=== PATIENT | female | born 1995 | race Caucasian/White ===

== ENCOUNTER 2018-05-31 14:47 | Emergency (ER) | payer SELFPAY ==
[~2018-05-31] VITALS: Ht 157.5 cm; Wt 64.9 kg
[~2018-05-31 14:47] MED LIST: ABILIFY; OMEPRAZOLE; TRAMADOL; XANAX; Z.0.CELEXA40 MG
--- OUTSIDE RECORDS SUMMARY | 2018-05-31 14:49 | XMS REPORT | Clinical Summary ---
Author Author [facility] [employer] [facility] Address Unknown Phone Unavailable Care Team Providers Care Rhinestone Setter Name Role Phone Asked, No Pcp PCP Unavailable Allergies Comments Active Allergy Reactions Severity Noted Date Yeast infections Amoxicillin Other (See 10/31/2016 Comments) Medications End Date Status Medication Sig Dispensed Refills Start Date Active Take 1 tablet 0 vit,[id number] 29 by mouth mg iron- 1 mg tablet per daily. tablet 02/11/2018 dicyclomine (BENTYL) 20 Take 1 tablet 20 tablet 0 02/01/201 mg tablet (20 mg total) 8 by mouth 2 (two) times a day for 10 days. 03/03/2018 ranitidine (ZANTAC) 150 Take 1 30 capsule 0 201 MG capsule capsule (150 8 mg total) by mouth daily for 30 days. 02/06/2018 acetaminophen-codeine Take 1-2 15 tablet 0 (TYLENOL WITH CODEINE #3) tablets by 8 300-30 mg per tablet mouth every 6 (six) hours as needed for moderate pain for up to 5 days. 03/03/2018 ondansetron (ZOFRAN) 8 MG Take 1 tablet 20 tablet 0 201 tablet (8 mg total) 8 by mouth every 8 (eight) hours as needed for nausea or vomiting for up to 30 days. Active Problems Not on file Encounters Care Team Description Date Type Specialty Yared, Dax Arizmendi Jr., MD Lower abdominal pain (Primary Dx); Nausea 01/31/2018 Emergency Emergency Medicine - 02/01/2018 after 05/30/2017 Social History Date Tobacco Use Types Packs/Day Years Used Quit: 10/31/2014 Former Smoker Cigarettes 0.5 Alcohol Use Drinks/Week oz/Week Comments No Sex Assigned at Date Recorded Not on file Industry Job Start Date Occupation Not on file Not on file Not on file Travel End Travel History Travel Start No recent travel history available. Last Filed Vital Signs Time Taken Vital Sign Reading 02/01/2018 4:43 AM CDT Blood Pressure 127/78 02/01/2018 4:43 AM CDT Pulse 56 02/01/2018 4:43 AM CDT Temperature 36.8 C (98.3 F) 02/01/2018 4:43 AM CDT Respiratory Rate 17 02/01/2018 4:43 AM CDT Oxygen Saturation 100% - Inhaled Oxygen - Concentration 01/31/2018 11:11 PM CDT Weight 68 kg (150 lb) 01/31/2018 11:11 PM CDT Height 157.5 cm (5' 2") 01/31/2018 11:11 PM CDT Body Mass Index 27.44 Plan of Treatment Health Maintenance Due Date Last Done Comments CERVICAL CANCER SCREENING 2014 CHLAMYDIA SCREENING 11/04/2017 11/04/2016 INFLUENZA VACCINE 12/28/2017 Procedures Comments Procedure Name Priority Date/Time Associated Diagnosis US PELVIC TRANSVAGINAL STAT 02/01/2018 5:49 AM CDT US PELVIC TRANSABDOMINAL STAT 02/01/2018 5:[address] ABDOMEN PELVIS W STAT 02/01/2018 CONTRAST 3:11 AM CDT HCG QUALITATIVE, URINE STAT 02/01/2018 SCREEN 12:37 AM CDT URINALYSIS SCREEN AND STAT 02/01/2018 MICROSCOPY, WITH REFLEX 12:37 AM CDT TO CULTURE ZZESTIMATED GFR STAT 01/31/2018 11:47 PM CDT LIPASE LEVEL STAT 01/31/2018 11:47 PM CDT COMPREHENSIVE METABOLIC STAT 01/31/2018 PANEL 11:47 PM CDT HC COMPLETE BLD COUNT STAT 01/31/2018 W/AUTO DIFF 11:47 PM CDT after 05/30/2017 Results * US Pelvic Transabdominal (02/01/2018 5:49 AM CDT) Narrative Performed At Examination:US PELVIC TRANSABDOMINAL, US PELVIC TRANSVAGINAL [facility] Clinical History: Adnexal massUS simple cystfollow up, Pelvic painneg HCGnon-sat act instructor Comparison: None. Findings: Transabdominal and transvaginal pelvic ultrasound was performed. The uterus measures 7.0 x 5.1 x 3.0 cm. Endometrial to measure 8.9 mm. The right ovary measured 4.3 x 2.4 x 2.7 cm. The left ovary measured 5.6 x 3.8 x 3.7 cm. It contains a cystic structure measuring 3.1 x 3.0 x 3.0 cm. It has some septation and internal echoes within it. There is normal vascular flow seen in both ovaries. Nonspecific free fluid in the pelvis is noted. IMPRESSION: 1. No evidence of torsion. 2. Left ovarian complex or hemorrhagic cyst. [facility]-[id number] Procedure Note Interface, Radiology Results Incoming - 02/01/2018 6:08 AM CDT Examination: US PELVIC TRANSABDOMINAL, US PELVIC TRANSVAGINAL Clinical History: Adnexal mass US simple cyst follow up, Pelvic pain neg HCG non-sat act instructor Comparison: None. Findings: Transabdominal and transvaginal pelvic ultrasound was performed. The uterus measures 7.0 x 5.1 x 3.0 cm. Endometrial to measure 8.9 mm. The right ovary measured 4.3 x 2.4 x 2.7 cm. The left ovary measured 5.6 x 3.8 x 3.7 cm. It contains a cystic structure measuring 3.1 x 3.0 x 3.0 cm. It has some septation and internal echoes within it. There is normal vascular flow seen in both ovaries. Nonspecific free fluid in the pelvis is noted. IMPRESSION: 1. No evidence of torsion. 2. Left ovarian complex or hemorrhagic cyst. [id number] Performing Organization Address City/State/Zipcode Phone Number [facility] [address] [place] [address] * US Pelvic Transvaginal (02/01/2018 5:49 AM CDT) Narrative Performed At Examination:US PELVIC TRANSABDOMINAL, US PELVIC TRANSVAGINAL [facility] Clinical History: Adnexal massUS simple cystfollow up, Pelvic painneg HCGnon-sat act instructor Comparison: None. Findings: Transabdominal and transvaginal pelvic ultrasound was performed. The uterus measures 7.0 x 5.1 x 3.0 cm. Endometrial to measure 8.9 mm. The right ovary measured 4.3 x 2.4 x 2.7 cm. The left ovary measured 5.6 x 3.8 x 3.7 cm. It contains a cystic structure measuring 3.1 x 3.0 x 3.0 cm. It has some septation and internal echoes within it. There is normal vascular flow seen in both ovaries. Nonspecific free fluid in the pelvis is noted. IMPRESSION: 1. No evidence of torsion. 2. Left ovarian complex or hemorrhagic cyst. [facility]-[id number] Procedure Note Interface, Radiology Results Incoming - 02/01/2018 6:08 AM CDT Examination: US PELVIC TRANSABDOMINAL, US PELVIC TRANSVAGINAL Clinical History: Adnexal mass US simple cyst follow up, Pelvic pain neg HCG non-sat act instructor Comparison: None. Findings: Transabdominal and transvaginal pelvic ultrasound was performed. The uterus measures 7.0 x 5.1 x 3.0 cm. Endometrial to measure 8.9 mm. The right ovary measured 4.3 x 2.4 x 2.7 cm. The left ovary measured 5.6 x 3.8 x 3.7 cm. It contains a cystic structure measuring 3.1 x 3.0 x 3.0 cm. It has some septation and internal echoes within it. There is normal vascular flow seen in both ovaries. Nonspecific free fluid in the pelvis is noted. IMPRESSION: 1. No evidence of torsion. 2. Left ovarian complex or hemorrhagic cyst. [id number] Performing Organization Address City/State/Zipcode Phone Number [facility] [address] [place] [address] * CT Abdomen Pelvis W Contrast (02/01/2018 3:11 AM CDT) Narrative Performed At Examination:CT ABDOMEN PELVIS W CONTRAST [facility] Clinical History: Abd paingastroenteritis or colitis suspected Comparison: None. Findings: CT scans are performed using radiation dose reduction techniques.Technical factors are evaluated and adjusted to ensure appropriate moderation of exposure.Automated dose management technology is applied to adjust radiation exposure while achieving a diagnostic quality image. CT scan of abdomen and pelvis was performed after intravenous contrast. The liver, spleen, pancreas, and adrenal glands are unremarkable. The patient is status post cholecystectomy. The kidneys are within normal limits without hydronephrosis. The appendix is visualized and unremarkable. No bowel thickening or fat stranding is seen. No bowel dilatation is seen. There is a left ovarian cyst noted measuring 3.1 cm. No free air is seen. Small free fluid is noted in the pelvis. Urinary bladder is unremarkable. The visualized lung bases are clear. IMPRESSION: 1. Left ovarian cyst. 2. Small nonspecific free fluid in the pelvis. 3. Otherwise no acute abnormality identified in abdomen or pelvis. [facility]-[id number] Procedure Note Interface, Radiology Results Incoming - 02/01/2018 3:19 AM CDT Examination: CT ABDOMEN PELVIS W CONTRAST Clinical History: Abd pain gastroenteritis or colitis suspected Comparison: None. Findings: CT scans are performed using radiation dose reduction techniques. Technical factors are evaluated and adjusted to ensure appropriate moderation of exposure. Automated dose management technology is applied to adjust radiation exposure while achieving a diagnostic quality image. CT scan of abdomen and pelvis was performed after intravenous contrast. The liver, spleen, pancreas, and adrenal glands are unremarkable. The patient is status post cholecystectomy. The kidneys are within normal limits without hydronephrosis. The appendix is visualized and unremarkable. No bowel thickening or fat stranding is seen. No bowel dilatation is seen. There is a left ovarian cyst noted measuring 3.1 cm. No free air is seen. Small free fluid is noted in the pelvis. Urinary bladder is unremarkable. The visualized lung bases are clear. IMPRESSION: 1. Left ovarian cyst. 2. Small nonspecific free fluid in the pelvis. 3. Otherwise no acute abnormality identified in abdomen or pelvis. [id number] Performing Organization Address City/State/Zipcode Phone Number [facility] [address] [place] [address] * Urinalysis screen and microscopy, with reflex to culture (02/01/2018 12:37 AM CDT) Specimen site Clean catch [facility] DEPARTMENT OF PATHOLOGY AND GENOMIC MEDICINE Color, UA Yellow [facility] DEPARTMENT OF PATHOLOGY AND GENOMIC MEDICINE Appearance, UA Clear [facility] DEPARTMENT OF PATHOLOGY AND GENOMIC MEDICINE Specific gravity, UA 1.034 1.001 - 1.035 [facility] DEPARTMENT OF PATHOLOGY AND GENOMIC MEDICINE pH, UA 5.0 5.0 - 8.5 [facility] DEPARTMENT OF PATHOLOGY AND GENOMIC MEDICINE Protein, UA 1+ (A) Negative [facility] DEPARTMENT OF PATHOLOGY AND GENOMIC MEDICINE Glucose, UA Negative Negative [facility] DEPARTMENT OF PATHOLOGY AND GENOMIC MEDICINE Ketones, UA 1+ (A) Negative [facility] DEPARTMENT OF PATHOLOGY AND GENOMIC MEDICINE Bilirubin, UA 2+ (A)Comment: Confirmation of Negative [facility] DEPARTMENT OF results no longer performed PATHOLOGY AND due to unavailability of GENOMIC MEDICINE reagent Blood, UA Negative Negative [facility] DEPARTMENT OF PATHOLOGY AND GENOMIC MEDICINE Nitrite, UA Negative Negative [facility] DEPARTMENT OF PATHOLOGY AND GENOMIC MEDICINE Urobilinogen, UA Negative <2.0 [facility] DEPARTMENT OF PATHOLOGY AND GENOMIC MEDICINE Leukocyte esterase, UA Negative Negative [facility] DEPARTMENT OF PATHOLOGY AND GENOMIC MEDICINE Epithelial cells, UA Many /HPF [facility] DEPARTMENT OF PATHOLOGY AND GENOMIC MEDICINE WBC, UA 1 0 - 5 /HPF [facility] DEPARTMENT OF PATHOLOGY AND GENOMIC MEDICINE RBC, UA 2 0 - 5 /HPF [facility] DEPARTMENT OF PATHOLOGY AND GENOMIC MEDICINE Bacteria, UA Trace None seen [facility] DEPARTMENT OF PATHOLOGY AND GENOMIC MEDICINE Yeast, UA None seen [facility] DEPARTMENT OF PATHOLOGY AND GENOMIC MEDICINE Yeast with pseudohyphae, None seen [facility] DEPARTMENT [facility] PATHOLOGY AND GENOMIC MEDICINE Specimen Urine Performing Organization Address City/[facility] Phone Number [place] [id number] [place] [address] PATHOLOGY AND GENOMIC MEDICINE * hCG qualitative, urine screen (02/01/2018 12:37 AM CDT) hCG qualitative, urine Negative Negative [facility] DEPARTMENT OF Comment: PATHOLOGY AND The manufacturers stated GENOMIC MEDICINE sensitivity of HcG test for serum is >/=10 mIU/ml and urine is >/=20mIU/ml. Specimen Urine Performing Organization Address City/[facility] Phone Number [facility] [address] [place] [address] PATHOLOGY AND GENOMIC MEDICINE * Estimated GFR (01/31/2018 11:47 PM CDT) GFR Non Af Amer 88 mL/min/1.73 m2 [facility] DEPARTMENT OF PATHOLOGY AND GENOMIC MEDICINE GFR Af Amer >90 mL/min/1.73 m2 [facility] DEPARTMENT OF Comment: PATHOLOGY AND Chronic kidney disease: <60 GENOMIC MEDICINE mL/min/1.73m2 Kidney failure: <15 mL/min/1.73m2 The estimated GFR is calculated from the IDMS-traceable Modification of Diet in Renal Disease Equation. The accuracy of the calculation is poor when the creatinine is normal. Calculated values >90 mL/min/1.73m2 are not reported. This equation has not been validated in children (<18 years), women, the elderly (>70 years), or ethnic groups other than Caucasians and Americans. Specimen Plasma specimen Performing Organization Address City/State/Zipcode Phone Number [place] [address] [place] [address] PATHOLOGY AND GENOMIC MEDICINE * CBC with platelet and differential (01/31/2018 11:47 PM CDT) WBC 11.3 (H) 4.2 - 11.0 k/uL [facility] DEPARTMENT OF PATHOLOGY AND GENOMIC MEDICINE RBC 4.75 4.04 - 5.86 m/uL [facility] DEPARTMENT OF PATHOLOGY AND GENOMIC MEDICINE HGB 14.6 11.5 - 15.3 g/dL [facility] DEPARTMENT OF PATHOLOGY AND GENOMIC MEDICINE HCT 43.8 34.0 - 45.0 % [facility] DEPARTMENT OF PATHOLOGY AND GENOMIC MEDICINE MCV 92.2 80.0 - 98.0 fL [facility] DEPARTMENT OF PATHOLOGY AND GENOMIC MEDICINE MCH 30.7 27.0 - 34.0 pg [facility] DEPARTMENT OF PATHOLOGY AND GENOMIC MEDICINE MCHC 33.3 31.5 - 36.5 g/dL [facility] DEPARTMENT OF PATHOLOGY AND GENOMIC MEDICINE RDW - SD 41.7 37.0 - 51.0 fL [facility] DEPARTMENT OF PATHOLOGY AND GENOMIC MEDICINE MPV 11.2 (H) 7.4 - 10.4 fL [facility] DEPARTMENT OF PATHOLOGY AND GENOMIC MEDICINE Platelet count 230 150 - 400 k/uL [facility] DEPARTMENT OF PATHOLOGY AND GENOMIC MEDICINE Nucleated RBC 0.00 /100 WBC [facility] DEPARTMENT OF PATHOLOGY AND GENOMIC MEDICINE Neutrophils 78.5 (H) 36.0 - 66.0 % [facility] DEPARTMENT OF PATHOLOGY AND GENOMIC MEDICINE Lymphocytes 9.7 (L) 24.0 - 44.0 % [facility] DEPARTMENT OF PATHOLOGY AND GENOMIC MEDICINE Monocytes 9.7 (H) 0.0 - 6.0 % [facility] DEPARTMENT OF PATHOLOGY AND GENOMIC MEDICINE Eosinophils 1.2 0.0 - 6.0 % [facility] DEPARTMENT OF PATHOLOGY AND GENOMIC MEDICINE Basophils 0.4 0.0 - 1.2 % [facility] DEPARTMENT OF PATHOLOGY AND GENOMIC MEDICINE Immature granulocytes 0.5 0.0 - 1.0 % [facility] DEPARTMENT OF PATHOLOGY AND GENOMIC MEDICINE Specimen Blood Performing Organization Address City/[facility]/Zipcode Phone Number [facility] [address] [place] [address] PATHOLOGY AND GENOMIC MEDICINE * Lipase level (01/31/2018 11:47 PM CDT) Lipase 18 13 - 60 U/L [facility] DEPARTMENT OF PATHOLOGY AND GENOMIC MEDICINE Specimen Plasma specimen Performing Organization Address City/[facility]/Zipcode Phone Number [place] [address] [place] [address] PATHOLOGY AND GENOMIC MEDICINE * Comprehensive metabolic panel (01/31/2018 11:47 PM CDT) Sodium 142 135 - 150 mEq/L [facility] DEPARTMENT OF PATHOLOGY AND GENOMIC MEDICINE Potassium 4.2 3.5 - 5.0 mEq/L [facility] DEPARTMENT OF PATHOLOGY AND GENOMIC MEDICINE Chloride 104 98 - 112 mEq/L [facility] DEPARTMENT OF PATHOLOGY AND GENOMIC MEDICINE CO2 25 24 - 31 mmol/L [facility] DEPARTMENT OF PATHOLOGY AND GENOMIC MEDICINE Anion gap 13@ANIO 7 - 15 mEq/L [facility] DEPARTMENT OF PATHOLOGY AND GENOMIC MEDICINE BUN 6 (L) 7 - 18 mg/dL [facility] DEPARTMENT OF PATHOLOGY AND GENOMIC MEDICINE Creatinine 0.80 0.50 - 0.90 mg/dL [facility] DEPARTMENT OF PATHOLOGY AND GENOMIC MEDICINE Glucose 109 (H) 65 - 100 mg/dL [facility] DEPARTMENT OF PATHOLOGY AND GENOMIC MEDICINE Calcium 9.3 8.3 - 10.2 mg/dL [facility] DEPARTMENT OF PATHOLOGY AND GENOMIC MEDICINE Protein 7.5 6.3 - 8.3 g/dL [facility] DEPARTMENT OF PATHOLOGY AND GENOMIC MEDICINE Albumin 4.4 3.5 - 5.0 g/dL [facility] DEPARTMENT OF PATHOLOGY AND GENOMIC MEDICINE A/G ratio 1.4 0.7 - 3.8 [facility] DEPARTMENT OF PATHOLOGY AND GENOMIC MEDICINE Alkaline phosphatase 64 0 - 104 U/L [facility] DEPARTMENT OF PATHOLOGY AND GENOMIC MEDICINE AST 28 10 - 35 U/L [facility] DEPARTMENT OF PATHOLOGY AND GENOMIC MEDICINE ALT 13 5 - 50 U/L [facility] DEPARTMENT OF PATHOLOGY AND GENOMIC MEDICINE Total bilirubin 0.4 0.2 - 1.2 mg/dL [facility] DEPARTMENT OF PATHOLOGY AND GENOMIC MEDICINE Specimen Plasma specimen Performing Organization Address City/State/Zipcode Phone Number [facility] [place] [address] PATHOLOGY AND GENOMIC MEDICINE after 05/30/2017 Advance Directives Patient has advance care planning documents on file. For more information, norbert lobato contact: Syed Post [address] [facility] [place] [address]
--- NOTE | 2018-05-31 15:00 | NUR ---
PATIENT CALLED, IN BATHRROM
== END 2018-05-31 16:41 | disposition home or self-care (01) ==
LOC: ER 14:47
DX: L02.91 Cutaneous abscess, unspecified (principal); F41.9 Anxiety disorder, unspecified; F32.9 Major depressive disorder, single episode, unspecified; E28.2 Polycystic ovarian syndrome
CPT/HCPCS: 99284